=== PATIENT | female | born 1970 | race Caucasian/White ===

== ENCOUNTER → 2017-09-22 | Outpatient (CLI) | payer OTHER ==
[~2017-09-22] MED LIST: BUPIVACAINE MPF 0.5% 30 ML VIAL. ONE; LIDOCAINE 1% PF 30 ML VIAL. ONE
== END | disposition home or self-care (01) ==
LOC: SURG 14:04
PROVIDERS: ATTEND Anesthesiology Pain Medicine
DX: M47.816 Spondylosis without myelopathy or radiculopathy, lumbar region (principal); Z72.89 Other problems related to lifestyle; Z98.890 Other specified postprocedural states; Z90.710 Acquired absence of both cervix and uterus
CPT/HCPCS: 64493; 64494; J2001; J3490

== ENCOUNTER → 2017-10-20 | Outpatient (CLI) | payer OTHER | END | disposition home or self-care (01) | LOC: SURG 12:17 | PROVIDERS: ATTEND Anesthesiology Pain Medicine | DX: M43.06 Spondylolysis, lumbar region (principal); M54.14 Radiculopathy, thoracic region | CPT/HCPCS: 99214 ==

== ENCOUNTER → 2017-11-24 | Outpatient (CLI) | payer OTHER ==
[~2017-11-24] MED LIST changes: +CYCL-331 PO; +IV RINGERS SOLUTION,LACTATED 1,000 ML BAG. IV ONE; +IV RINGERS SOLUTION,LACTATED 1,000 ML IV ONE; +IV RINGERS SOLUTION,LACTATED 1,000 ML IV SCH; +MIDAZOLAM HCL PF 2 MG/2 ML VIAL. ONE; +methylPREDNISolone ACETATE 40 MG/ML VIAL. ONE
[2017-11-24 15:35] VITALS: BP 127/68
== END | disposition home or self-care (01) ==
LOC: SURG 13:06
PROVIDERS: ATTEND Anesthesiology Pain Medicine
DX: M47.816 Spondylosis without myelopathy or radiculopathy, lumbar region (principal); Z90.710 Acquired absence of both cervix and uterus; Z98.890 Other specified postprocedural states
CPT/HCPCS: 64635; 64636; J1030; J2001; J2250; J3010; J3490; J7120

== ENCOUNTER → 2017-12-08 | Outpatient (CLI) | payer OTHER ==
[~2017-12-08] MED LIST changes: -IV RINGERS SOLUTION,LACTATED 1,000 ML BAG. IV ONE; -IV RINGERS SOLUTION,LACTATED 1,000 ML IV ONE; +LIDOCAINE 1% PF 2 ML VIAL. ID PRN; +ONDANSETRON PF 4 MG/2 ML VIAL. IV PRN; +PROCHLORPERAZINE 10 MG/2 ML VIAL. IV PRN
[2017-12-08 15:22] VITALS: BP 125/72
== END | disposition home or self-care (01) ==
LOC: SURG 12:09
PROVIDERS: ATTEND Anesthesiology Pain Medicine
DX: M47.816 Spondylosis without myelopathy or radiculopathy, lumbar region (principal); M54.5 Low back pain; F17.210 Nicotine dependence, cigarettes, uncomplicated; Z90.710 Acquired absence of both cervix and uterus; Z98.890 Other specified postprocedural states
CPT/HCPCS: 64635; 64636; J1030; J2001; J2250; J3010; J3490; J7120; 64493; 64494

== ENCOUNTER → 2021-09-25 | Outpatient (CLI) | payer OTHER ==
[2017-12-08 15:22] VITALS: BP 125/72
[~2021-09-25] MED LIST changes: -BUPIVACAINE MPF 0.5% 30 ML VIAL. ONE; -CYCL-331 PO; +CYCL10TA19 PO; -IV RINGERS SOLUTION,LACTATED 1,000 ML IV SCH; -LIDOCAINE 1% PF 2 ML VIAL. ID PRN; -LIDOCAINE 1% PF 30 ML VIAL. ONE; -MIDAZOLAM HCL PF 2 MG/2 ML VIAL. ONE; -ONDANSETRON PF 4 MG/2 ML VIAL. IV PRN; -PROCHLORPERAZINE 10 MG/2 ML VIAL. IV PRN; -methylPREDNISolone ACETATE 40 MG/ML VIAL. ONE
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
== END ==
LOC: RAD 14:00
PROVIDERS: ATTEND Physician Assistant
DX: M47.12 Other spondylosis with myelopathy, cervical region (principal); M48.8X2 Other specified spondylopathies, cervical region
CPT/HCPCS: 72050

== ENCOUNTER 2022-01-01 15:49 | Emergency (ER) | payer OTHER ==
[~2022-01-01] VITALS: Ht 157.5 cm; Wt 63.0 kg
[2022-01-01 16:08] VITALS: BP 115/87
--- NOTE | 2022-01-01 16:28 | PHYS DOC ---
Past History Additional Past Medical Histor: RA Past Surgical History: , Hysterectomy Adult General Chief Complaint Chief Complaint: DIZZY/LIGHT HEADED HPI HPI Patient is a 51-year-old female presenting to the emergency department for eval uation of symptoms of right arm pain right hand numbness and weakness. Patient says that she was bit by a cat last week and has not had any problems as far as swelling erythema warmth but starting last night she started getting severe pain with numbness and weakness in the right hand. She says the numbness has resolved and that the pain has improved. She says that she has had chills but no measured fevers. She says that she has a history of rheumatoid arthritis and does get flareups but this does not feel similar to prior arthritis flareups. She is in no acute distress with normal vital signs. Review of Systems Review of Systems Constitutional: Denies fever. + chills [] Eyes: Denies change in visual acuity, redness, or eye pain [] HENT: Denies nasal congestion or sore throat [] Respiratory: Denies cough or shortness of breath [] Cardiovascular: No additional information not addressed in HPI [] GI: Denies abdominal pain, nausea, vomiting, bloody stools or diarrhea [] : Denies dysuria or hematuria [] Musculoskeletal: Denies back pain. + joint pain [] Integument: Denies rash or skin lesions [] Neurologic: Denies headache. + focal weakness, sensory changes [] All other systems were reviewed and found to be within normal limits, except as documented in this note. Current Medications Current Medications Current Medications Medications (Trade) Dose Ordered Sig/[facility] Start Time Stop Time Status Last Admin Dose Admin Acetaminophen/ Hydrocodone Bitart (Lortab 5/325) 2 tab 1X ONCE 01/01/22 16:30 01/01/22 16:31 Ketorolac Tromethamine (Toradol 15mg Vial) 15 mg 1X ONCE 01/01/22 16:30 01/01/22 16:31 Allergies Allergies Allergies Coded Allergies Type Severity Reaction Last Updated Verified No Known Drug Allergies 12/08/17 No Physical Exam Physical Exam Constitutional: Well developed, well nourished, no acute distress, non-toxic appearance. [] HENT: Normocephalic, atraumatic, bilateral external ears normal, oropharynx moist, no oral exudates, nose normal. [] Eyes: PERRLA, EOMI, conjunctiva normal, no discharge. [] Neck: Normal range of motion, no tenderness, supple, no stridor. [] Cardiovascular:Heart rate regular rhythm, no murmur [] Lungs & Thorax: Bilateral breath sounds clear to auscultation [] Abdomen: Bowel sounds normal, soft, no tenderness, no masses, no pulsatile masses. [] Skin: Warm, dry, no erythema, no rash. [] Back: No tenderness, no CVA tenderness. [] Extremities: No tenderness to palpation in the right arm with no erythema warmth or swelling noted. Neurologic: Alert and oriented X 3. Positive right hand weakness with inability to make a fist. Normal sensation in the right hand. Current Patient Data Vital Signs Vital Signs Date Time Temp Pulse Resp B/P (MAP) Pulse Ox O2 Delivery O2 Flow Rate FiO2 01/01/22 16:08 98.5 79 18 115/87 (96) 98 Room Air EKG EKG [] Radiology/Procedures Radiology/Procedures [] Heart Score C/O Chest Pain: No Risk Factors: Risk Factors: DM, Current or recent (<one month) smoker, HTN, HLP, family history of CAD, obesity. Risk Scores: Risk Factors: DM, Current or recent (<one month) smoker, HTN, HLP, family history of CAD, obesity. Course & Med Decision Making Course & Med Decision Making Patient has nonspecific right arm pain numbness and weakness. I am uncertain of the relation to the cat bite but given patient has new onset weakness and numbness her work-up may need to be expanded to rule out CVA or severe cervical stenosis. Patient with right arm numbness and weakness that is much worse and I recommended transfer to a facility that can do an MRI and she has consented but she is worried about childcare. I am going to set up transfer to [facility]. Dragon Disclaimer Dragon Disclaimer This electronic medical record was generated, in whole or in part, using a voice recognition dictation system. Departure Departure: Impression: Primary Impression: Cervical radiculopathy, acute Additional Impressions: Right arm numbness Right arm weakness Disposition: ADMITTED INPATIENT Admitting Physician: Other ([place]) Condition: IMPROVED Referrals: BETZY KING MD (PCP) Problem Qualifiers ELLIE HUNTER DO Jan 01, 2022 16:28
[2022-01-01] MEDS ORDERED: HYDROcodone/APAP 5/325MG 1 TAB TABLET PO ONE (16:30)
[2022-01-01] MEDS ORDERED: KETOROLAC 15 MG/ML VIAL. IV ONE (16:30)
--- NOTE | 2022-01-01 17:32 | RAD ---
Exam: CT head and cervical spine INDICATION: Right arm and hand numbness TECHNIQUE: Sequential axial images through the head and cervical spine were obtained without the admi nistration of IV contrast. Exposure: One or more of the following in the visualized dose reduction techniques were utilized for this examination: 1. Automated exposure control 2. Adjustment of the MA and/or KV according to patient size 3. Use of iterative of reconstructive technique Comparisons: None FINDINGS: Head: No focal parenchymal lesion or hemorrhage is identified. There is no midline shift or sulcal effaceme nt. No acute vascular territory infarction is identified. Benton-white distinction is preserved. The ventricular system is within normal limits without compression hydrocephalus. The basal cisterns are well maintained. The visualized portions of the paranasal sinuses and mastoid air cells are well-pneumatized. No acute fractures. Cervical spine: Vertebral body heights are well-maintained. Straightening of the cervical spine. Fracture through the cervical spine is not identified. Multilevel spondylotic change in cervical spine with degenerative disease greatest at C5-C6 and C6-C7 . Visualized paraspinal soft tissues are unremarkable. IMPRESSION: 1. No acute intracranial abnormality. 2. Negative CT C-spine for acute traumatic injury Electronically signed by: Sola Buchanan MD (01/01/2022 5:30 PM) [facility]
[2022-01-01] MEDS ORDERED: DEXAMETHASONE SOD PHOS 10 MG/ML VIAL. IV ONE (18:00)
[2022-01-01 18:20] LABS: BASO # 0.1 x10^3/uL (0.0-0.2); BASO % 1 % (0-3); EOS # 0.2 x10^3/uL (0.0-0.7); EOS % 3 % (0-3); HEMATOCRIT 43.4 % (36.0-47.0); HEMOGLOBIN 14.7 g/dL (12.0-15.5); LYMPH # 2.1 x10^3/uL (1.0-4.8); LYMPH % 24 % (24-48); MEAN CORPUSCULAR HEMOGLOBIN 31 pg (25-35); MEAN CORPUSCULAR HGB CONC 34 g/dL (31-37); MEAN CORPUSCULAR VOLUME 92 fL (79-100); MONO # 0.7 x10^3/uL (0.0-1.1); MONO % 8 % (0-9); NEUT # 5.5 x10^3uL (1.8-7.7); NEUT % 64 % (31-73); PLATELET COUNT 244 x10^3/uL (140-400); RED BLOOD COUNT 4.74 x10^6/uL (3.50-5.40); RED CELL DISTRIBUTION WIDTH 12.6 % (11.5-14.5); WHITE BLOOD COUNT 8.6 x10^3/uL (4.0-11.0)
[2022-01-01 18:25] LABS: CREATININE 0.6 mg/dL (0.6-1.0); GFR 106.3; POTASSIUM 4.1 mmol/L (3.5-5.1)
[2022-01-01 18:30] LABS: ALBUMIN 3.9 g/dL (3.4-5.0); ALBUMIN/GLOBULIN RATIO 1.1 (1.0-1.7); TOTAL BILIRUBIN 0.2 mg/dL (0.2-1.0); TOTAL PROTEIN 7.4 g/dL (6.4-8.2)
== END 2022-01-01 19:13 | disposition left against medical advice (07) ==
LOC: ER 15:49
DX: M54.12 Radiculopathy, cervical region (principal); R53.1 Weakness; R20.0 Anesthesia of skin; M06.9 Rheumatoid arthritis, unspecified
CPT/HCPCS: 36415; 70450; 72125; 80053; 85025; 85610; 85730; 96374; 99284; J1100